=== PATIENT | female | born 1945 | race Caucasian/White ===

== ENCOUNTER 2018-11-07 07:51 | Inpatient (IN) | payer MEDICARE ==
[~2018-11-07 07:51] MED LIST: LEVOTHYROXINE 88 MCG TAB PO SCH
[2018-11-07] MEDS ORDERED: SODIUM CHLORIDE 0.9% 1,000 ML IV STA ×3 (08:36→12:14)
[2018-11-07 08:38] LABS: Glucose,Whole Blood >600 mg/dL (75-99)
--- NOTE | 2018-11-07 08:42 | ED ---
General Adult HPI - General Stated complaint: Diabetic Time Seen by Provider: 11/07/18 07:53 Source: patient, family, RN notes reviewed Mode of arrival: EMS Limitations: altered mental status - History of Present Illness Initial comments: Patient is a pleasant 73-year-old female presenting to the emergency department for not feeling well. Patient is a poor historian and offers very little history. Family does arrive and helps provide some history. Onset of symptoms was last night. Patient did vomit once. Patient had a large bowel movement in the emergency department. Blood sugar at home by EMS was 500. Family reports patient did complain of some discomfort in her chest earlier. Family reports patient does have dementia and normally is confused however this is worse than normal. Patient is very vague with answering questions. - Related Data Home Medications Medication Instructions Recorded Confirmed Carbidopa-Levodopa 25-100 mg 1 tab PO TID 03/11/15 11/07/18 [Sinemet 25-100 mg] Levothyroxine Sodium [Synthroid] 88 mcg PO SUTUTHSA 03/11/15 11/07/18 Lisinopril-Hctz 10-12.5 mg 1 tab PO DAILY 03/11/15 11/07/18 [Zestoretic 10-12.5] Lovastatin [Mevacor] 40 mg PO DAILY 03/11/15 11/07/18 Sertraline [Zoloft] 25 mg PO DAILY 03/11/15 11/07/18 amLODIPine [Norvasc] 10 mg PO DAILY 03/11/15 11/07/18 metFORMIN HCL [metFORMIN HCL ER] 1,000 mg PO BID 03/11/15 11/07/18 Insulin Aspart [NovoLOG Flexpen] 10 units SQ AC-TID 11/07/18 11/07/18 Insulin Glargine,Hum.rec.anlog 35 unit SQ HS 11/07/18 11/07/18 [Lantus Solostar] Levothyroxine Sodium [Synthroid] 44 mcg PO MOWEFR 11/07/18 11/07/18 Allergies Allergy/AdvReac Type Severity Reaction Status Date / Time Iodinated Contrast- Oral and Allergy Anaphylaxis Verified 11/07/18 09:05 IV Dye [Iodinated Contrast Media - IV Dye] Penicillins Allergy Unknown Verified 11/07/18 09:05 Review of Systems ROS Statement: Those systems with pertinent positive or pertinent negative responses have been documented in the HPI. ROS Other: All systems not noted in ROS Statement are negative. Constitutional: Denies: fever Eyes: Denies: eye pain ENT: Denies: ear pain Respiratory: Denies: dyspnea Cardiovascular: Reports: as per HPI Endocrine: Reports: fatigue Gastrointestinal: Denies: abdominal pain Genitourinary: Denies: dysuria Musculoskeletal: Denies: back pain Skin: Denies: rash Neurological: Reports: weakness Past Medical History Past Medical History: CVA/TIA, Diabetes Mellitus, Hypertension, Osteoarthritis (OA), Thyroid Disorder Additional Past Medical History / Comment(s): parkinsons, dementia, several TIA's, hospitalized recently for chest pain-testing wnl, was due to gallbladder History of Any Multi-Drug Resistant Organisms: None Reported Past Surgical History: Appendectomy, Orthopedic Surgery Additional Past Surgical History / Comment(s): knee Past Anesthesia/Blood Transfusion Reactions: Previous Problems w/ Anesthesia, Postoperative Nausea & Vomiting (PONV) Additional Past Anesthesia/Blood Transfusion Reaction / Comment(s): trouble waking up from anesthesia Past Psychological History: Depression Smoking Status: Never smoker Past Alcohol Use History: None Reported Past Drug Use History: None Reported - Past Family History Mother Family Medical History: CVA/TIA, Hypertension General Exam Limitations: altered mental status General appearance: alert, in no apparent distress Head exam: Present: atraumatic Eye exam: Present: normal appearance, PERRL ENT exam: Present: normal oropharynx Neck exam: Present: normal inspection Respiratory exam: Present: normal lung sounds bilaterally Cardiovascular Exam: Present: regular rate, normal rhythm Expanded Peripheral pulses: 1+: Radial (R), Radial (L), Posterior Tibialis (R), Posterior Tibialis (L), Dorsalis Pedis (R), Dorsalis Pedis (L) GI/Abdominal exam: Present: soft, tenderness (Mild epigastric tenderness), normal bowel sounds. Absent: distended, guarding, rebound, rigid, pulsatile mass Extremities exam: Present: normal inspection Neurological exam: Present: alert, CN II-XII intact. Absent: motor sensory deficit Expanded Neurological exam: Present: protecting the airway Patient oriented to: Present: person, place Cranial nerves: EOM's Intact: Normal Motor strength exam: RUE: 5, LUE: 5, RLE: 5, LLE: 5 Eye Response: (4) open spontaneously Motor Response: (6) obeys commands Verbal Response: (4) confused conversation Psychiatric exam: Present: flat affect Skin exam: Present: normal color Course Vital Signs 11/07/18 11/07/18 11/07/18 07:56 08:00 08:10 Temperature Pulse Rate Pulse Rate [ Cream Separator Operator ] Respiratory Rate Blood Pressure O2 Sat by Pulse 91 L 87 L 76 L Oximetry 11/07/18 11/07/18 11/07/18 08:15 08:20 08:30 Temperature 99.5 F Pulse Rate 98 93 92 Pulse Rate [ Cream Separator Operator ] Respiratory 24 32 H 29 H Rate Blood Pressure 63/43 58/25 63/43 O2 Sat by Pulse 95 95 Oximetry 11/07/18 11/07/18 11/07/18 08:40 08:50 09:00 Temperature Pulse Rate 90 92 95 Pulse Rate [ Cream Separator Operator ] Respiratory 19 28 H 25 H Rate Blood Pressure 94/76 94/76 94/76 O2 Sat by Pulse 97 Oximetry 11/07/18 11/07/18 11/07/18 09:10 09:11 09:30 Temperature Pulse Rate 91 96 Pulse Rate [ 98 Cream Separator Operator ] Respiratory 26 H Rate Blood Pressure 77/37 77/37 O2 Sat by Pulse 94 L 96 Oximetry 11/07/18 11/07/18 11/07/18 10:00 10:30 11:00 Temperature Pulse Rate 104 H 105 H 102 H Pulse Rate [ Cream Separator Operator ] Respiratory 35 H 12 Rate Blood Pressure 117/23 94/52 92/54 O2 Sat by Pulse 97 Oximetry 11/07/18 11/07/18 11:30 12:00 Temperature Pulse Rate 95 98 Pulse Rate [ Cream Separator Operator ] Respiratory 18 9 L Rate Blood Pressure 90/51 75/49 O2 Sat by Pulse Oximetry - Reevaluation(s) Reevaluation #1: 11/07/18 10:15 EKG #2 shows sinus tachycardia 103. IA 1:30. QRS 80. QT 376. QTc 492. Normal axis. Normal QRS. Borderline lateral ST depression. 11/07/18 13:25 Patient did have blood pressures as low as 69 and 78. Case was discussed in detail with Dr. Meraz, who will accept patient to the ICU. He does request central line and Levophed. Blood pressure at this time has improved to 105 therefore levophed is being held. Case was also discussed in detail Dr. Richardson, who will admit covering for hospital call. 11/07/18 13:37 Page x-ray shows central line extending to the left subclavian. 11/07/18 13:38 Patient was reevaluated. Patient will need further cardiac evaluation. Patient will be admitted to ICU for critical care. Patient will be continued on insulin drip at this time. Patient still has some epigastric tenderness on exam. Computed tomography scan will be ordered. Secondary to elevated creatinine and ALLERGY contrast will need to be held at this time. Echo will also be ordered. Heparin will be held pending CT results. EKG Findings - EKG Comments: EKG Findings:: Sinus rhythm at 97. IA 128. QRS 90. QT 370. QTc 469. Normal axis. Normal QRS. Non-specific ST-T. Procedures - Central Line Placement Right SC Consent Obtained: verbal consent, written consent Patient Placed on Monitor/Pulse Ox: Yes MD Prep: mask, gown, gloves Central Line Prep: Chlorhexidine scrub Local Anesthesia Used: Lidocaine 1% Amount of Anesthesia Used (mls): 2 Central Line Lumen Inserted: triple Central Line Position: good blood return, all ports aspirated, flushed, capped, sutured in place with 3-0 nylon Dressing Applied: Tegaderm Patient Tolerated Procedure: well, no complications Complications: none Medical Decision Making - Lab Data Result diagrams: 11/07/18 08:30 11/07/18 12:00 Lab Results 11/07/18 11/07/18 11/07/18 Range/Units 08:28 08:30 08:30 WBC 16.6 H (3.8-10.6) k/uL RBC 5.14 (3.80-5.40) m/uL Hgb 13.9 (11.4-16.0) gm/dL Hct 48.3 H (34.0-46.0) % MCV 94.1 (80.0-100.0) fL MCH 27.1 (25.0-35.0) pg MCHC 28.8 L (31.0-37.0) g/dL RDW 13.7 (11.5-15.5) % Plt Count 240 (150-450) k/uL Neutrophils % 82 % Lymphocytes % 12 % Monocytes % 5 % Eosinophils % 0 % Basophils % 0 % Neutrophils # 13.6 H (1.3-7.7) k/uL Lymphocytes # 2.1 (1.0-4.8) k/uL Monocytes # 0.7 (0-1.0) k/uL Eosinophils # 0.0 (0-0.7) k/uL Basophils # 0.1 (0-0.2) k/uL Hypochromasia Marked PT (9.0-12.0) sec INR (<1.2) APTT (22.0-30.0) sec Sodium 135 L (137-145) mmol/L Potassium 5.5 H (3.5-5.1) mmol/L Chloride 101 (98-107) mmol/L Carbon Dioxide 14 L (22-30) mmol/L Anion Gap 20 mmol/L BUN 35 H (7-17) mg/dL Creatinine 1.90 H (0.52-1.04) mg/dL Est GFR (CKD-EPI)AfAm 30 (>60 ml/min/1.73 sqM) Est GFR (CKD-EPI)NonAf 26 (>60 ml/min/1.73 sqM) Glucose 701 H* (74-99) mg/dL POC Glucose (mg/dL) >600 H (75-99) mg/dL POC Glu [employer] ID November Lactic Ac Sepsis Rflx Plasma Lactic Acid Jd (0.7-2.0) mmol/L Calcium 9.6 (8.4-10.2) mg/dL Phosphorus 5.7 H (2.5-4.5) mg/dL Magnesium 1.6 (1.6-2.3) mg/dL Total Bilirubin 1.1 (0.2-1.3) mg/dL AST 46 H (14-36) U/L ALT 32 (9-52) U/L Alkaline Phosphatase 135 H (38-126) U/L Ammonia (<30) umol/L Creatine Kinase 45 (30-135) U/L Troponin I (0.000-0.034) ng/mL Total Protein 7.3 (6.3-8.2) g/dL Albumin 3.8 (3.5-5.0) g/dL Urine Color Urine Appearance (Clear) Urine pH (5.0-8.0) Ur Specific Rewey (1.001-1.035) Urine Protein (Negative) Urine Glucose (UA) (Negative) Urine Ketones (Negative) Urine Blood (Negative) Urine Nitrite (Negative) Urine Bilirubin (Negative) Urine Urobilinogen (<2.0) mg/dL Ur Leukocyte Esterase (Negative) Urine RBC (0-5) /hpf Urine WBC (0-5) /hpf Ur Squamous Epith Cells (0-4) /hpf Hyaline Casts (0-2) /lpf Urine Mucus (None) /hpf Acetone, Qual (Negative) 11/07/18 11/07/18 11/07/18 Range/Units 08:30 08:30 08:30 WBC (3.8-10.6) k/uL RBC (3.80-5.40) m/uL Hgb (11.4-16.0) gm/dL Hct (34.0-46.0) % MCV (80.0-100.0) fL MCH (25.0-35.0) pg MCHC (31.0-37.0) g/dL RDW (11.5-15.5) % Plt Count (150-450) k/uL Neutrophils % % Lymphocytes % % Monocytes % % Eosinophils % % Basophils % % Neutrophils # (1.3-7.7) k/uL Lymphocytes # (1.0-4.8) k/uL Monocytes # (0-1.0) k/uL Eosinophils # (0-0.7) k/uL Basophils # (0-0.2) k/uL Hypochromasia PT 11.1 (9.0-12.0) sec INR 1.1 (<1.2) APTT 21.9 L (22.0-30.0) sec Sodium (137-145) mmol/L Potassium (3.5-5.1) mmol/L Chloride (98-107) mmol/L Carbon Dioxide (22-30) mmol/L Anion Gap mmol/L BUN (7-17) mg/dL Creatinine (0.52-1.04) mg/dL Est GFR (CKD-EPI)AfAm (>60 ml/min/1.73 sqM) Est GFR (CKD-EPI)NonAf (>60 ml/min/1.73 sqM) Glucose (74-99) mg/dL POC Glucose (mg/dL) (75-99) mg/dL POC Glu [employer] ID Lactic Ac Sepsis Rflx Plasma Lactic Acid Jd 9.1 H* (0.7-2.0) mmol/L Calcium (8.4-10.2) mg/dL Phosphorus (2.5-4.5) mg/dL Magnesium (1.6-2.3) mg/dL Total Bilirubin (0.2-1.3) mg/dL AST (14-36) U/L ALT (9-52) U/L Alkaline Phosphatase (38-126) U/L Ammonia 14 (<30) umol/L Creatine Kinase (30-135) U/L Troponin I 0.550 H* (0.000-0.034) ng/mL Total Protein (6.3-8.2) g/dL Albumin (3.5-5.0) g/dL Urine Color Urine Appearance (Clear) Urine pH (5.0-8.0) Ur Specific Rewey (1.001-1.035) Urine Protein (Negative) Urine Glucose (UA) (Negative) Urine Ketones (Negative) Urine Blood (Negative) Urine Nitrite (Negative) Urine Bilirubin (Negative) Urine Urobilinogen (<2.0) mg/dL Ur Leukocyte Esterase (Negative) Urine RBC (0-5) /hpf Urine WBC (0-5) /hpf Ur Squamous Epith Cells (0-4) /hpf Hyaline Casts (0-2) /lpf Urine Mucus (None) /hpf Acetone, Qual (Negative) 11/07/18 11/07/18 11/07/18 Range/Units 08:52 09:44 09:55 WBC (3.8-10.6) k/uL RBC (3.80-5.40) m/uL Hgb (11.4-16.0) gm/dL Hct (34.0-46.0) % MCV (80.0-100.0) fL MCH (25.0-35.0) pg MCHC (31.0-37.0) g/dL RDW (11.5-15.5) % Plt Count (150-450) k/uL Neutrophils % % Lymphocytes % % Monocytes % % Eosinophils % % Basophils % % Neutrophils # (1.3-7.7) k/uL Lymphocytes # (1.0-4.8) k/uL Monocytes # (0-1.0) k/uL Eosinophils # (0-0.7) k/uL Basophils # (0-0.2) k/uL Hypochromasia PT (9.0-12.0) sec INR (<1.2) APTT (22.0-30.0) sec Sodium (137-145) mmol/L Potassium (3.5-5.1) mmol/L Chloride (98-107) mmol/L Carbon Dioxide (22-30) mmol/L Anion Gap mmol/L BUN (7-17) mg/dL Creatinine (0.52-1.04) mg/dL Est GFR (CKD-EPI)AfAm (>60 ml/min/1.73 sqM) Est GFR (CKD-EPI)NonAf (>60 ml/min/1.73 sqM) Glucose (74-99) mg/dL POC Glucose (mg/dL) >600 H (75-99) mg/dL POC Glu [employer] [facility] Sepsis Rflx Y Plasma Lactic Acid Jd (0.7-2.0) mmol/L Calcium (8.4-10.2) mg/dL Phosphorus (2.5-4.5) mg/dL Magnesium (1.6-2.3) mg/dL Total Bilirubin (0.2-1.3) mg/dL AST (14-36) U/L ALT (9-52) U/L Alkaline Phosphatase (38-126) U/L Ammonia (<30) umol/L Creatine Kinase (30-135) U/L Troponin I (0.000-0.034) ng/mL Total Protein (6.3-8.2) g/dL Albumin (3.5-5.0) g/dL Urine Color Urine Appearance (Clear) Urine pH (5.0-8.0) Ur Specific Rewey (1.001-1.035) Urine Protein (Negative) Urine Glucose (UA) (Negative) Urine Ketones (Negative) Urine Blood (Negative) Urine Nitrite (Negative) Urine Bilirubin (Negative) Urine Urobilinogen (<2.0) mg/dL Ur Leukocyte Esterase (Negative) Urine RBC (0-5) /hpf Urine WBC (0-5) /hpf Ur Squamous Epith Cells (0-4) /hpf Hyaline Casts (0-2) /lpf Urine Mucus (None) /hpf Acetone, Qual Negative (Negative) 11/07/18 11/07/18 Range/Units 10:57 12:00 WBC (3.8-10.6) k/uL RBC (3.80-5.40) m/uL Hgb (11.4-16.0) gm/dL Hct (34.0-46.0) % MCV (80.0-100.0) fL MCH (25.0-35.0) pg MCHC (31.0-37.0) g/dL RDW (11.5-15.5) % Plt Count (150-450) k/uL Neutrophils % % Lymphocytes % % Monocytes % % Eosinophils % % Basophils % % Neutrophils # (1.3-7.7) k/uL Lymphocytes # (1.0-4.8) k/uL Monocytes # (0-1.0) k/uL Eosinophils # (0-0.7) k/uL Basophils # (0-0.2) k/uL Hypochromasia PT (9.0-12.0) sec INR (<1.2) APTT (22.0-30.0) sec Sodium 138 (137-145) mmol/L Potassium 5.1 (3.5-5.1) mmol/L Chloride 106 (98-107) mmol/L Carbon Dioxide 15 L (22-30) mmol/L Anion Gap 17 mmol/L BUN 34 H (7-17) mg/dL Creatinine 1.93 H (0.52-1.04) mg/dL Est GFR (CKD-EPI)AfAm 29 (>60 ml/min/1.73 sqM) Est GFR (CKD-EPI)NonAf 25 (>60 ml/min/1.73 sqM) Glucose 581 H* (74-99) mg/dL POC Glucose (mg/dL) (75-99) mg/dL POC Glu [employer] ID Lactic Ac Sepsis Rflx Plasma Lactic Acid Jd (0.7-2.0) mmol/L Calcium (8.4-10.2) mg/dL Phosphorus 5.5 H (2.5-4.5) mg/dL Magnesium (1.6-2.3) mg/dL Total Bilirubin (0.2-1.3) mg/dL AST (14-36) U/L ALT (9-52) U/L Alkaline Phosphatase (38-126) U/L Ammonia (<30) umol/L Creatine Kinase (30-135) U/L Troponin I (0.000-0.034) ng/mL Total Protein (6.3-8.2) g/dL Albumin (3.5-5.0) g/dL Urine Color Yellow Urine Appearance Cloudy H (Clear) Urine pH 5.5 (5.0-8.0) Ur Specific Rewey 1.021 (1.001-1.035) Urine Protein 1+ H (Negative) Urine Glucose (UA) 4+ H (Negative) Urine Ketones Negative (Negative) Urine Blood Negative (Negative) Urine Nitrite Negative (Negative) Urine Bilirubin Negative (Negative) Urine Urobilinogen 3.0 (<2.0) mg/dL Ur Leukocyte Esterase Negative (Negative) Urine RBC 1 (0-5) /hpf Urine WBC 4 (0-5) /hpf Ur Squamous Epith Cells 5 H (0-4) /hpf Hyaline Casts 125 H (0-2) /lpf Urine Mucus Many H (None) /hpf Acetone, Qual (Negative) - Radiology Data Radiology results: image reviewed (Chest x-ray shows no acute process. Mediastinum is prominent. 1 view abdominal x-ray shows unremarkable abdomen.) Critical Care Time Critical Care Time: Yes Total Critical Care Time: 45 Disposition Clinical Impression: Hyperglycemia, Dehydration, Chest pain Disposition: ADMITTED IP TO THIS [facility] Condition: Critical Is patient prescribed a controlled substance at d/c from ED?: No Referrals: Roberto Boyce DO [Primary Care Provider] - 1-2 days Decision Time: 13:39
[2018-11-07 09:12] LABS: Basophils # (A) 0.1 k/uL (0-0.2); Basophils % (A) 0 %; Eosinophils % (A) 0 %; HCT 48.3 % (34.0-46.0); HGB 13.9 gm/dL (11.4-16.0); Hypochromasia Marked; Lymphocytes # (A) 2.1 k/uL (1.0-4.8); Lymphocytes % (A) 12 %; MCH 27.1 pg (25.0-35.0); MCHC 28.8 g/dL (31.0-37.0); MCV 94.1 fL (80.0-100.0); Mean Platelet Volume 8.9; Monocytes # (A) 0.7 k/uL (0-1.0); Monocytes % (A) 5 %; Neutrophils # (A) 13.6 k/uL (1.3-7.7); Neutrophils % (A) 82 %; Platelet Count 240 k/uL (150-450); RBC 5.14 m/uL (3.80-5.40); RDW 13.7 % (11.5-15.5); WBC 16.6 k/uL (3.8-10.6)
[2018-11-07 09:22] LABS: Albumin 3.8 g/dL (3.5-5.0); Calcium 9.6 mg/dL (8.4-10.2); Magnesium 1.6 mg/dL (1.6-2.3); Phosphorus 5.7 mg/dL (2.5-4.5); Total Bilirubin 1.1 mg/dL (0.2-1.3); Total Protein 7.3 g/dL (6.3-8.2)
--- NOTE | 2018-11-07 09:32 | XR ---
EXAMINATION TYPE: XR abdomen 1V DATE OF EXAM: 11/07/2018 COMPARISON: None INDICATION: Pain TECHNIQUE: Single view abdomen supine view FINDINGS: Very little bowel gas is present. Air is within the stomach. Multiple surgical clips are within the l eft upper quadrant. There is elevation of the right diaphragm. Psoas margins are normal. No organomegaly is present. IMPRESSION: 1. Unremarkable Abdomen
--- NOTE | 2018-11-07 09:34 | XR ---
EXAMINATION TYPE: XR chest 2V DATE OF EXAM: 11/07/2018 COMPARISON: 03/11/2015 INDICATION: Weakness acute mental status changes hyperglycemia TECHNIQUE: Frontal and lateral views of the chest are obtained. FINDINGS: The heart size is mildly prominent. Mediastinum appears prominent. There is some rotation may accentu ate the mediastinal silhouette.. The pulmonary vasculature is normal. The lungs are clear. IMPRESSION: 1. No acute pulmonary process. 2. Mediastinum appears somewhat prominent. Some of this may be attributed to rotation. Underlying mas s could be considered. Consider follow-up CT chest.
[2018-11-07 09:37] LABS: INR 1.1 (<1.2); Partial Thromboplastin Time 21.9 sec (22.0-30.0); Prothrombin Time 11.1 sec (9.0-12.0)
[2018-11-07 09:46] LABS: Glucose,Whole Blood >600 mg/dL (75-99)
[2018-11-07 09:50] LABS: Potassium 5.5 mmol/L (3.5-5.1)
[2018-11-07] MEDS ORDERED: SODIUM CHLORIDE 0.9% 1,000 ML IV ONE (09:52)
[2018-11-07] MEDS ORDERED: INSULIN REGULAR BOLUS (FROM DRIP BAG) IV ONE (09:52)
[2018-11-07 09:55] LABS: Lactic Acid, Venous 9.1 mmol/L (0.7-2.0)
[2018-11-07] MEDS: INSULIN REGULAR 100 UNIT in SODIUM CHLORIDE 0.9% 100 ML IV SCH ×2 (11:19→21:30)
[2018-11-07 11:24] LABS: Appearance,Urine Cloudy (Clear); Bilirubin,Urine Negative (Negative); Blood,Urine Negative (Negative); Color,Urine Yellow; Glucose,Urine (UA) 4+ (Negative); Hyaline Casts,Urine 125 /lpf (0-2); Ketones,Urine Negative (Negative); Leukocyte Esterase,Urine Negative (Negative); Mucus,Urine Many /hpf; Nitrite,Urine Negative (Negative); PH, Urine 5.5 (5.0-8.0); Protein,Urine 1+ (Negative); RBC,Urine 1 /hpf (0-5); Specific Gravity,Urine 1.021 (1.001-1.035); Squamous Epithelial Cell,Urine 5 /hpf (0-4); WBC,Urine 4 /hpf (0-5)
[2018-11-07] MEDS: SODIUM CHLORIDE 0.9% 1,000 ML IV SCH ×3 (12:10→20:10)
[2018-11-07 12:45] LABS: Phosphorus 5.5 mg/dL (2.5-4.5); Potassium 5.1 mmol/L (3.5-5.1)
--- NOTE | 2018-11-07 13:36 | XR ---
EXAMINATION TYPE: XR chest 1V portable DATE OF EXAM: 11/07/2018 COMPARISON: 11/07/2018 INDICATION: Line placement TECHNIQUE: Single frontal view of the chest is obtained. FINDINGS: The heart size is normal. The pulmonary vasculature is normal. The lungs are clear. No pneumothorax is evident There is a right subclavian catheter present across the midline with the tip in the left subclavian r egion. No pneumothorax is evident. IMPRESSION: 1. Central venous catheter tip appears to be in the left subclavian or brachiocephalic region. 2. No pneumothorax.
[2018-11-07] MEDS ORDERED: NALOXONE 0.4 MG/ML 1 ML VIAL IV PRN (13:42)
[2018-11-07 13:44] LABS: Glucose,Whole Blood 443 mg/dL (75-99)
[2018-11-07] MEDS ORDERED: NITROGLYCERIN SL TABS 0.4 MG TAB SUBLINGUAL PRN (13:44)
[2018-11-07] MEDS ORDERED: ASPIRIN 81 MG PO STA (13:44)
[2018-11-07 15:09] LABS: Glucose,Whole Blood 439 mg/dL (75-99)
--- NOTE | 2018-11-07 15:22 | CT ---
EXAMINATION TYPE: CT ChestAbdPelvis wo con DATE OF EXAM: 11/07/2018 INDICATION: Hyperglycemia, vomiting, chest pain. COMPARISON: None CT DLP: 694.5 mGycm CONTRAST: None TECHNIQUE: Axial images at 5 mm thick sections. Reconstructed images in the coronal plane. Delayed images through the kidneys. FINDINGS: CT CHEST: Beam hardening artifact from a right shoulder prosthesis causes some limitation. Right subc lavian catheter is present within the brachiocephalic vein. The tip appears to be within the distal m ost brachiocephalic vein or superior vena cava region. Subcutaneous emphysema is evident the anterior chest. Portion of the thyroid visualized is normal. This is limited in visualization. Right lobe thyroid is somewhat more prominent than the left. No suspicious lung nodules or focal infiltrates are present. No enlarged mediastinal or hilar adenopathy is evident. The ascending aorta diameter at the level of the main pulmonary artery is 2.6 cm. The main pulmonary artery diameter at the bifurcation is 3.4 cm. Coronary artery calcifications present. Calcification is within the descending thoracic aorta at the aortic arch ascending thoracic aorta. CT ABDOMEN: Liver: Normal Spleen: Normal Pancreas: Normal Adrenal glands: The adrenal glands are normal. Gallbladder: Surgically absent Kidneys: No masses are evident. No hydronephrosis is present. No cysts are present. No renal stone s are evident. Aorta: Vascular calcification is within the aorta. Inferior vena cava: Normal. CT PELVIS: Loops of bowel within the abdomen and pelvis are normal. There are loops of bowel which are incom pletely distended or lack oral contrast limiting their evaluation. Appendix: Not visualized. No suspicious inflammatory changes or dilated tubular structures are eviden t. Urinary bladder: Decompressed with a Kc catheter. Genitourinary structures: Uterus appears normal. Adnexal regions are clear. No free fluid is within t he pelvis. Osseous structures: No suspicious lytic or sclerotic lesions. Facet hypertrophy is present. IMPRESSIONS: 1. No suspicious acute changes.
[2018-11-07] MEDS ORDERED: HEPARIN SODIUM,PORCINE 5,000 UNIT/ML 1 ML VIAL IV PRN (15:37)
[2018-11-07] MEDS ORDERED: HEPARIN SODIUM,PORCINE 5,000 UNIT/ML 1 ML VIAL IV ONE (15:37)
[2018-11-07 15:44] LABS: Glucose,Whole Blood 370 mg/dL (75-99)
[2018-11-07] MEDS ORDERED: HEPARIN SOD,PORK IN 0.45% NACL 25,000 UNIT in 0.45% NACL 1 250ML.BAG IV SCH (15:45)
--- NOTE | 2018-11-07 16:14 | P.CNPUL ---
History of Present Illness Consult date: 11/07/18 Requesting physician: Bharat Richardson Reason for consult: other (altered mental status) Chief complaint: altered mental status History of present illness: this is a 73-year-old female with history of multiple medical problems including dementia,diabetes, hypothyroidism, hypertension,degenerative joint disease, previous CVA, patient was brought into the ER withchief complaint not feeling well, patient is a poor historian, and according to family patient had worsening mental status, and feeling generally weak and tired. She did have some vague discomfort in the chest earlier today.her symptoms have been progressing since last night. She had one episode of vomiting. But denies any abdominal pain, no melena, no hematemesis, denies any dysuria frequency or urgency. In the ER, the patient was noted to be hypotensive, ,metabolically acidotic with an anion gap of 17, she was noted to have acute kidney injury with BUN of 34 creatinine of 1.93, and her blood sugar was 581, elevated troponin of 0.630,and she was negative for ketones. Patient received 2 on a half liters of fluids in the form of 0.9 normal saline, remained relatively hypotensive, a central line was placed by the ER physician,and a central line was noted to cross from the right to the left subclavian or brachiocephalic region. However it was functional, and it was kept in place.considering the patient's hypotension, hyperglycemia, patient was transferred to the ICU, kept on 0.9 normal saline at 200 mL/h, insulin is at 7 units per hour, CT of the abdomen and pelvis was negative for any acute process. Chest x-ray was also unremarkable. Her lactic acid was elevated, but clearly the patient was profoundly dehydrated. No clear-cut evidence of infection or sepsis upon presentation. Review of Systems patient is a poor historian, not much review of systems couldn't be obtained. She does have also underlying dementia. Past Medical History Past Medical History: CVA/TIA, Dementia, Diabetes Mellitus, Hyperlipidemia, Hypertension, Musculoskeletal Disorder, Neurologic Disorder, Osteoarthritis (OA), Thyroid Disorder Additional Past Medical History / Comment(s): IDDM type II, parkinson's disease, several TIAs, arthritis bilateral hands/legs, hypothyroid, recently has been having vision difficulties. History of Any Multi-Drug Resistant Organisms: None Reported Past Surgical History: Adenoidectomy, Appendectomy, Cholecystectomy, Orthopedic Surgery, Tonsillectomy, Tubal Ligation Additional Past Surgical History / Comment(s): Total L knee arthroplasty, R shoulder hemiarthroplasty, bilateral ganglion cystectomies, pancreatic cyst removed, colonoscopy, surgery for varicosities. Past Anesthesia/Blood Transfusion Reactions: Previous Problems w/ Anesthesia, Postoperative Nausea & Vomiting (PONV) Additional Past Anesthesia/Blood Transfusion Reaction / Comment(s): trouble waking up from anesthesia Smoking Status: Never smoker - Past Family History Father Family Medical History: No Reported History Additional Family Medical History / Comment(s): Father was healthy and lived to be 97yrs old. Mother Family Medical History: CVA/TIA, Hypertension Medications and Allergies Home Medications Medication Instructions Recorded Confirmed Type Carbidopa-Levodopa 25-100 mg 1 tab PO TID 03/11/15 11/07/18 History [Sinemet 25-100 mg] Levothyroxine Sodium [Synthroid] 88 mcg PO SUTUTHSA 03/11/15 11/07/18 History Lisinopril-Hctz 10-12.5 mg 1 tab PO DAILY 03/11/15 11/07/18 History [Zestoretic 10-12.5] Lovastatin [Mevacor] 40 mg PO DAILY 03/11/15 11/07/18 History Sertraline [Zoloft] 25 mg PO DAILY 03/11/15 11/07/18 History amLODIPine [Norvasc] 10 mg PO DAILY 03/11/15 11/07/18 History metFORMIN HCL [metFORMIN HCL ER] 1,000 mg PO BID 03/11/15 11/07/18 History Insulin Aspart [NovoLOG Flexpen] 10 units SQ AC-TID 11/07/18 11/07/18 History Insulin Glargine,Hum.rec.anlog 35 unit SQ HS 11/07/18 11/07/18 History [Lantus Solostar] Levothyroxine Sodium [Synthroid] 44 mcg PO MOWEFR 11/07/18 11/07/18 History Allergies Allergy/AdvReac Type Severity Reaction Status Date / Time Iodinated Contrast- Oral and Allergy Anaphylaxis Verified 11/07/18 09:05 IV Dye [Iodinated Contrast Media - IV Dye] Penicillins Allergy Unknown Verified 11/07/18 09:05 Physical Exam Vitals: Vital Signs Temp Pulse Pulse Resp BP Pulse Ox 11/07/18 15:30 95.8 F L 108 H 18 93/56 96 11/07/18 14:30 111 H 15 91/66 96 11/07/18 14:00 105 H 11 L 106/64 11/07/18 13:30 107 H 106/59 99 11/07/18 13:00 108 H 23 107/72 11/07/18 12:30 105 H 89/61 99 11/07/18 12:00 98 9 L 75/49 11/07/18 11:30 95 18 90/51 11/07/18 11:00 102 H 12 92/54 11/07/18 10:30 105 H 35 H 94/52 11/07/18 10:00 104 H 117/23 97 11/07/18 09:30 96 77/37 96 11/07/18 09:11 98 11/07/18 09:10 91 26 H 77/37 94 L 11/07/18 09:00 95 25 H 94/76 97 11/07/18 08:50 92 28 H 94/76 11/07/18 08:40 90 19 94/76 11/07/18 08:30 92 29 H 63/43 95 11/07/18 08:20 93 32 H 58/25 11/07/18 08:15 99.5 F 98 24 63/43 95 11/07/18 08:10 76 L 11/07/18 08:00 87 L 11/07/18 07:56 91 L Intake and Output 11/07/18 11/07/18 11/07/18 06:59 14:59 22:59 Other: Weight 77.111 kg Physical Exam: Revealed a 73-year-old female in no distress. Head: Atraumatic, normocephalic. HEENT:[Neck is supple.] [No neck masses.] [No thyromegaly.] [No JVD.]dry mucous membranes, PERRLA, EOMI, no icterus. Chest: [diminished breath sounds at the bases no crackles nor rhonchi no wheezes, no chest wall tenderness.]right subclavian central line is noted. Cardiac Exam: [Normal S1 and S2, no S3 gallop, no murmur.] Abdomen: [Soft, nontender, no megaly, no rebound, no guarding, normal bowel sounds.]positive bowel sounds. Extremities: [No clubbing, no edema, no cyanosis.]good pulses bilaterally. Neurological Exam: patient is awake, confused, disoriented, otherwise no gross focal neurologic deficit. Psychiatric: Blunted mood and affect, poor mental status. Skin: No rashes. Lymphatics: No lymphadenopathy. Results - Laboratory Findings CBC and BMP: 11/07/18 08:30 11/07/18 12:00 PT/INR, D-dimer PT 11.1 sec (9.0-12.0) 11/07/18 08:30 INR 1.1 (<1.2) 11/07/18 08:30 Abnormal lab findings: Abnormal Labs 11/07/18 11/07/18 11/07/18 08:28 08:30 08:30 WBC 16.6 H Hct 48.3 H MCHC 28.8 L Neutrophils # 13.6 H APTT Sodium 135 L Potassium 5.5 H Carbon Dioxide 14 L BUN 35 H Creatinine 1.90 H Glucose 701 H* POC Glucose (mg/dL) >600 H Plasma Lactic Acid Jd Phosphorus 5.7 H AST 46 H Alkaline Phosphatase 135 H Troponin I Urine Appearance Urine Protein Urine Glucose (UA) Ur Squamous Epith Cells Hyaline Casts Urine Mucus 11/07/18 11/07/18 11/07/18 08:30 08:30 08:30 WBC Hct MCHC Neutrophils # APTT 21.9 L Sodium Potassium Carbon Dioxide BUN Creatinine Glucose POC Glucose (mg/dL) Plasma Lactic Acid Jd 9.1 H* Phosphorus AST Alkaline Phosphatase Troponin I 0.550 H* Urine Appearance Urine Protein Urine Glucose (UA) Ur Squamous Epith Cells Hyaline Casts Urine Mucus 11/07/18 11/07/18 11/07/18 09:44 10:57 12:00 WBC Hct MCHC Neutrophils # APTT Sodium Potassium Carbon Dioxide 15 L BUN 34 H Creatinine 1.93 H Glucose 581 H* POC Glucose (mg/dL) >600 H Plasma Lactic Acid Jd Phosphorus 5.5 H AST Alkaline Phosphatase Troponin I Urine Appearance Cloudy H Urine Protein 1+ H Urine Glucose (UA) 4+ H Ur Squamous Epith Cells 5 H Hyaline Casts 125 H Urine Mucus Many H 11/07/18 11/07/18 11/07/18 13:41 14:32 14:32 WBC Hct MCHC Neutrophils # APTT Sodium Potassium Carbon Dioxide BUN Creatinine Glucose POC Glucose (mg/dL) 443 H Plasma Lactic Acid Jd 4.6 H* Phosphorus AST Alkaline Phosphatase Troponin I 0.630 H* Urine Appearance Urine Protein Urine Glucose (UA) Ur Squamous Epith Cells Hyaline Casts Urine Mucus 11/07/18 11/07/18 15:08 15:33 WBC Hct MCHC Neutrophils # APTT Sodium Potassium Carbon Dioxide BUN Creatinine Glucose POC Glucose (mg/dL) 439 H 370 H Plasma Lactic Acid Jd Phosphorus AST Alkaline Phosphatase Troponin I Urine Appearance Urine Protein Urine Glucose (UA) Ur Squamous Epith Cells Hyaline Casts Urine Mucus - Diagnostic Findings Chest x-ray: image reviewed CT scan - chest: image reviewed (CT chest abdomen and pelvis reviewed, no suspicious abnormality in no acute change.) Additional studies: all radiographic studies noted, no acute abnormality was noted. Assessment and Plan Assessment: impression: 1 acute hyperglycemic, hyperosmolar state with dehydration and metabolic encephalopathy. 2 profound dehydration secondary to hyperglycemia, and strongly suspect pre- renal azotemia, possible acute kidney injury secondary to hypotension. 3 acute hypovolemia with hypotension. 4 elevated troponin, possible non-ST elevation myocardial infarction, however that is being addressed by cardiology was consulted. 5multiple comorbidities including dementia, hypertension, degenerative joint disease,hypothyroidism, hypercholesterolemia and depression. Recommendation:fully agree with the present treatment plan, patient is now on IV fluid in the form of 0.9 normal saline at 200 mL/h, the protocol for hyperglycemia is being followed presently on insulin drip, strongly doubt sepsis, however considering the patient profound metabolic acidosis and hypotension, will empirically start the patient on Levaquin until cultures of blood urine are available. Continue GI prophylaxis, and continue heparin. We'll continue to follow. Time with Patient: Greater than 30
[2018-11-07 16:54] LABS: Potassium 4.5 mmol/L (3.5-5.1)
[2018-11-07] MEDS ORDERED: LEVOFLOXACIN 500MG-D5W PMX 500 MG in DEXTROSE/WATER 1 100ML.BAG IVPB SCH (17:00)
[2018-11-07 17:10] LABS: Glucose,Whole Blood 257 mg/dL (75-99)
[2018-11-07] MEDS: D5-0.45% NACL WITH KCL 20MEQ/L 1,000 ML IV SCH (17:36)
[2018-11-07 18:29] LABS: Glucose,Whole Blood 267 mg/dL (75-99)
[2018-11-07 19:30] LABS: Glucose,Whole Blood 277 mg/dL (75-99)
[2018-11-07 20:15] LABS: Glucose,Whole Blood 228 mg/dL (75-99)
[2018-11-07] MEDS: CARBIDOPA-LEVODOPA 25-100 MG 1 EACH TAB PO SCH (20:47)
[2018-11-07 21:18] LABS: Glucose,Whole Blood 229 mg/dL (75-99)
[2018-11-07 22:10] LABS: Glucose,Whole Blood 201 mg/dL (75-99)
[2018-11-07 23:14] LABS: Glucose,Whole Blood 212 mg/dL (75-99)
[2018-11-08 00:08] LABS: Glucose,Whole Blood 196 mg/dL (75-99)
[2018-11-08] MEDS: D5-0.45% NACL WITH KCL 20MEQ/L 1,000 ML IV SCH ×2 (00:32→07:20)
--- NOTE | 2018-11-08 00:37 | HP ---
HISTORY AND PHYSICAL DATE OF ADMISSION: November 07, 2018 DATE OF SERVICE: November 07, 2018 PRESENTING COMPLAINT: Tired, lethargic. HISTORY OF PRESENTING COMPLAINT: This is a 73-year-old patient who follows with Dr. Whitt presented to the ER not feeling well. The patient has got dementia. Per the ER, family brought the patient in and since last night, the patient did vomit once. Did have a large bowel movement in the ER. Blood sugar taken at home was about 500. She was more lethargic in the ER, the patient had a blood glucose was 701. Lactic acid was 9.1 and troponin was 0.5. Potassium was 5.5. The patient's serum acetone was negative. The patient was put on insulin drip and protocol with IV fluids, initially given normal saline and then D5 admitted to the ICU. Like stated, the patient is rather confused. The patient's chronic stable medical conditions include dementia, hyperlipidemia, hypertension, osteoarthritis, hypothyroid, Parkinson's disease, several TIAs, arthritis, hypothyroid. REVIEW OF SYSTEMS: See above. Rest cannot be obtained as the patient is rather confused, can only answer simple questions. PAST MEDICAL HISTORY: Stroke, dementia, diabetes, hyperlipidemia, hypertension, musculoskeletal disorder, osteoarthritis, hypothyroid, diabetes type 2, Parkinson disease, arthritis in both the hands, hypothyroid. All this is obtained from the hospital documentation electronic system. PAST SURGICAL HISTORY: Adenoidectomy, appendectomy, cholecystectomy, orthopedic surgery, tonsillectomy, tubal ligation, total left knee arthroplasty, right shoulder hemiarthroplasty, cystectomy, pancreatic cyst removed, surgery for varicosities. PSYCH HISTORY: Depression. SOCIAL HISTORY: Patient lives with her daughter Wanda who is the caregiver. Does use a walker. No history of smoking or alcohol. FAMILY HISTORY: Of stroke and hypertension. HOME MEDICATIONS: 1. Metformin ER 1000 mg b.i.d. 2. Norvasc 10 mg p.o. daily. 3. Followup 25 p.o. daily. 4. Pravachol 40 mg p.o. daily. 5. Zestoretic 05/27.5 one tab p.o. daily. 6. Synthroid 88 mcg on Wednesday, Wednesday, , Wednesday and 44 mcg Wednesday, Wednesday and Wednesday. 7. Insulin NovoLog 10 units a.c. t.i.d. 8. Lantus 35 units subcu q.h.s. 9. Sinemet 25/100 tab t.i.d. ALLERGIES: IV CONTRAST DYE AND PENICILLIN. PHYSICAL EXAMINATION: VITAL SIGNS: Vital signs on presentation temperature 99.5, pulse 98, respiration 24, blood pressure 53/43, pulse ox 95% on 2 L. GENERAL APPEARANCE: Well built, BMI 31. Lying in bed tired-appearing. EYES: Pupils equal. Conjunctivae normal. HEENT: External appearance of nose and ears normal. Oral cavity dry. J JVD: JVD unable to assess. Mass not palpable. Respiratory effort normal. Lungs fair entry CARDIOVASCULAR: 1st and 2nd sounds normal. No edema. ABDOMEN: Soft, nontender. Liver and spleen not palpable. LYMPHATIC: Lymph nodes palpable in neck or axillae. PSYCHIATRY: Patient can answer some simple questions. Does not know why she is here or what places this is. NEUROLOGICAL: Pupils equal. No facial asymmetry. Moving her limbs. INVESTIGATIONS: White count 16.6, hemoglobin 13.9, potassium 5.5, bicarb 14, BUN 35, creatinine 1.90, blood glucose 701, lactic acid 9.1, phosphorus 5.7. Troponin I 0.550. Serum acetone negative. EKG tracing personally reviewed by me showed normal sinus rhythm with nonspecific ST-segment changes and slight dipping in the lateral leads. CT scan of the chest, abdomen and pelvis in acute x-ray film, personally reviewed by me shows some cardiomegaly, elevated right diaphragm with a supine film. ASSESSMENT: 1. Acute nonketotic hyperosmolar hyperglycemia. 2. Diabetes mellitus type 2, chronically on insulin. 3. Acute metabolic encephalopathy from uncontrolled sugars and fluid abnormalities. 4. Severe cognitive impairment from underlying dementia. 5. Hyperlipidemia. 6. Essential hypertension. 7. Primary osteoarthritis. 8. Hypothyroid. 9. Chronic Parkinson disease. 10.Hyperkalemia secondary to renal failure renal failure renal failure. 11.Suspect acute renal failure due to volume loss, dehydration. 12.Troponin leak troponin leak likely from hemodynamic mismatch. Doubt acute coronary syndrome. PLAN: Patient admitted to the ICU put on DKA protocol. We will get a 2-D echocardiogram and get a cardiology opinion. Currently no family members present. The patient was put on IV heparin in the ER. We will await further cardiology input. Copy to Dr. Roberto Castle. MMODL / IJN: [id number] /
[2018-11-08 01:11] LABS: Glucose,Whole Blood 155 mg/dL (75-99)
[2018-11-08 02:19] LABS: Hemoglobin A1C 8.9 % (4.0-6.0)
[2018-11-08 02:22] LABS: Glucose,Whole Blood 163 mg/dL (75-99)
[2018-11-08 03:13] LABS: Glucose,Whole Blood 140 mg/dL (75-99)
[2018-11-08 04:14] LABS: Glucose,Whole Blood 150 mg/dL (75-99)
[2018-11-08 05:15] LABS: Glucose,Whole Blood 127 mg/dL (75-99)
[2018-11-08 05:51] LABS: HCT 43.7 % (34.0-46.0); HGB 12.9 gm/dL (11.4-16.0); Hypochromasia Marked; MCH 26.9 pg (25.0-35.0); MCHC 29.5 g/dL (31.0-37.0); MCV 91.1 fL (80.0-100.0); Mean Platelet Volume 9.8; Platelet Count 120 k/uL (150-450); RBC 4.79 m/uL (3.80-5.40); RDW 13.9 % (11.5-15.5); WBC 22.1 k/uL (3.8-10.6)
[2018-11-08 06:11] LABS: INR 1.4 (<1.2); Prothrombin Time 14.4 sec (9.0-12.0)
[2018-11-08 06:28] LABS: Calcium 8.7 mg/dL (8.4-10.2); Magnesium 1.2 mg/dL (1.6-2.3); Phosphorus 3.4 mg/dL (2.5-4.5); Potassium 4.8 mmol/L (3.5-5.1)
[2018-11-08] MEDS ORDERED: LEVOTHYROXINE 88 MCG TAB PO SCH (06:30)
[2018-11-08 06:41] LABS: Glucose,Whole Blood 135 mg/dL (75-99)
[2018-11-08 06:53] LABS: Band Neutrophils % 6 %; Lymphocytes # (M) 3.76 k/uL (1.0-4.8); Monocytes # (M) 1.33 k/uL (0-1.0); Neutrophils % (M) 71 %; Nucleated Red Blood Cells 0 /100 WBC (0-0); Total Cells Counted 100
[2018-11-08 06:54] LABS: Anisocytosis (M) Present
[2018-11-08 06:56] LABS: Poikilocytosis (M) Present
[2018-11-08 06:58] LABS: Polychromasia Present
[2018-11-08 07:00] LABS: Toxic Granulation Present
[2018-11-08 08:17] LABS: Glucose,Whole Blood 151 mg/dL (75-99)
[2018-11-08] MEDS ORDERED: SUCCINYLCHOLINE CHLORIDE VIAL 200 MG/10 ML VIAL IV ONE (08:21)
[2018-11-08] MEDS ORDERED: MIDAZOLAM 1 MG/ML 5 ML VIAL ONE (08:21)
[2018-11-08] MEDS ORDERED: ASPIRIN 81 MG PO SCH (09:00)
[2018-11-08] MEDS ORDERED: SERTRALINE 25 MG TAB PO SCH (09:00)
[2018-11-08] MEDS ORDERED: ASPIRIN 325 MG TAB PO SCH (09:00)
[2018-11-08] MEDS ORDERED: ATORVASTATIN 40 MG TAB PO SCH (09:00)
[2018-11-08] MEDS ORDERED: PANTOPRAZOLE 40 MG/10 ML VIAL IV SCH (09:00)
[2018-11-08] MEDS ORDERED: ATORVASTATIN 10 MG TAB PO SCH (09:00)
[2018-11-08] MEDS ORDERED: METOPROLOL TARTRATE 12.5 MG TAB PO SCH (09:00)
--- NOTE | 2018-11-08 09:02 | ECHOF ---
Referral Reason:chest pain MEASUREMENTS -------- HEIGHT: 157.5 cm WEIGHT: 77.1 kg BP: RVIDd: 4.8 cm (< 3.3) IVSd: 1.3 cm (0.6 - 1.1) LVIDd: 2.7 cm (3.9 - 5.3) LVPWd: 1.5 cm (0.6 - 1.1) IVSs: 1.6 cm LVIDs: 1.7 cm LVPWs: 1.3 cm LAESV Index (A-L): 24.42 ml/m Ao Diam: 2.8 cm (2.0 - 3.7) AV Cusp: 1.3 cm (1.5 - 2.6) LA Diam: 3.6 cm (2.7 - 3.8) MV E Romulo: 0.53 m/s MV DecT: 195 ms MV A Romulo: 0.85 m/s MV E/A Ratio: 0.63 RAP: 15.00 mmHg RVSP: 62.51 mmHg FINDINGS -------- Sinus rhythm. This was a techncally difficult study with suboptimal views, , Lumason utilized for enhancement of im ages. There is mild concentric left ventricular hypertrophy. Overall left ventricular systolic function i s normal with, an EF between 60 - 65 %. The right ventricle is severely enlarged. The right ventricular systolic function is severely impai red. The right ventricular septal wall is flattened in diastole and systole which is consistent wi th right ventricular volume and pressure overload. The left atrial size is normal. The right atrial size is normal. 5.0mg OF Lumason UTLIZED: 2 OR MORE WALL SEGMENTS NOT VISUALIZED. There is mild aortic valve sclerosis. There is no evidence of aortic regurgitation. Mild mitral annular calcification present. Mild mitral regurgitation is present. Moderate tricuspid regurgitation present. There is moderate pulmonary hypertension. The right ignacio tricular systolic pressure, as measured by Doppler, is 62.51mmHg. The pulmonic valve was not well visualized. The aortic root size is normal. IVC Not well visulized. There is no pericardial effusion. CONCLUSIONS -------- 1. This was a techncally difficult study with suboptimal views, , Lumason utilized for enhancement of images. 2. There is mild concentric left ventricular hypertrophy. 3. Overall left ventricular systolic function is normal with, an EF between 60 - 65 %. 4. The right ventricle is severely enlarged. 5. The right ventricular septal wall is flattened in diastole and systole which is consistent with r ight ventricular volume and pressure overload. 6. The left atrial size is normal. 7. The right atrial size is normal. 8. 5.0mg OF Lumason UTLIZED: 2 OR MORE WALL SEGMENTS NOT VISUALIZED. 9. There is mild aortic valve sclerosis. 10. Mild mitral annular calcification present. 11. Mild mitral regurgitation is present. 12. Moderate tricuspid regurgitation present. 13. The right ventricular systolic pressure, as measured by Doppler, is 62.51mmHg. 14. The pulmonic valve was not well visualized. 15. The aortic root size is normal. 16. IVC Not well visulized. 17. There is no pericardial effusion. SHELL MAKER LOCKSTITCH: Lorena Dinero RDCS
[2018-11-08 09:30] LABS: Glucose,Whole Blood 189 mg/dL (75-99)
[2018-11-08] MEDS: CARBIDOPA-LEVODOPA 25-100 MG 1 EACH TAB PO SCH (09:37)
[2018-11-08] MEDS ORDERED: FUROSEMIDE 10 MG/ML 4 ML VIAL IV STA (10:24)
[2018-11-08] MEDS ORDERED: SODIUM CHLORIDE 0.9% 1,000 ML IV SCH (10:30)
[2018-11-08 10:39] LABS: Calcium 8.5 mg/dL (8.4-10.2); Phosphorus 3.9 mg/dL (2.5-4.5); Potassium 5.3 mmol/L (3.5-5.1)
[2018-11-08] MEDS ORDERED: SODIUM BICARBONATE TAB 650 MG TAB PO SCH (10:45)
[2018-11-08] MEDS ORDERED: ONDANSETRON 4 MG/2 ML VIAL IVP PRN (10:50)
[2018-11-08] MEDS ORDERED: Magnesium Replacement Protocol 1 EACH MISC MISCELLANE PRN (10:51)
[2018-11-08 10:59] VITALS: BMI 30.1
[2018-11-08 11:29] LABS: Glucose,Whole Blood 225 mg/dL (75-99)
[2018-11-08] MEDS ORDERED: DEXTROSE 5% IN WATER 1,000 ML with SODIUM BICARB (1 MEQ/ML) 150 ML IV SCH (11:45)
[2018-11-08] MEDS ORDERED: MAGNESIUM SULFATE-D5W PMX 1 GM in DEXTROSE/WATER 1 100ML.BAG IVPB SCH (12:00)
--- NOTE | 2018-11-08 12:03 | P.NPCON ---
History of Present Illness - Reason for Consult acute renal failure - History of Present Illness Reason for consultation: Acute kidney injury History of present illness: Patient is a 73-year-old female seen in consultation for acute kidney injury. Patient's creatinine in February 2015 was 0.76. This admission was 1.92 and is up to 2.42 today. Patient presented to the hospital with generalized weakness and hyperglycemia. Her blood sugar was over 600 on admission and she is currently maintained on insulin drip. She has received 2-1/2 L of normal saline bolus. In terms of maintenance fluids she is maintained on normal saline at 125 mL an hour. Her blood pressure was also in the systolic 80s on admission and is improved. She is not on vasopressors. She is acidotic with a bicarbonate level of 16. She was taking KISHAN inhibitor and hydrochlorothiazide which are currently held. She has long-standing history of diabetes mellitus. Urine output has been 5-10 mL an hour. No use of NSAIDs. She did have vomiting prior to admission. No family history of renal disease. Daughter present at bedside. Vital signs are stable. General: The patient appeared well nourished and normally developed. HEENT: Head exam is unremarkable. Neck is without jugular venous distension. LUNGS: Breath sounds decreased. HEART: Rate and Rhythm are regular. First and second heart sounds normal. No murmurs, rubs or gallops. ABDOMEN: Abdominal exam reveals normal bowel sounds. Non-tender and non- distended. No evidence of peritonitis. EXTREMITITES: No clubbing, cyanosis, or edema. Past Medical History Past Medical History: CVA/TIA, Dementia, Diabetes Mellitus, Hyperlipidemia, Hypertension, Musculoskeletal Disorder, Neurologic Disorder, Osteoarthritis (OA), Thyroid Disorder Additional Past Medical History / Comment(s): IDDM type II, parkinson's disease, several TIAs, arthritis bilateral hands/legs, hypothyroid, recently has been having vision difficulties. History of Any Multi-Drug Resistant Organisms: None Reported Past Surgical History: Adenoidectomy, Appendectomy, Cholecystectomy, Orthopedic Surgery, Tonsillectomy, Tubal Ligation Additional Past Surgical History / Comment(s): Total L knee arthroplasty, R shoulder hemiarthroplasty, bilateral ganglion cystectomies, pancreatic cyst removed, colonoscopy, surgery for varicosities. Past Anesthesia/Blood Transfusion Reactions: Previous Problems w/ Anesthesia, Postoperative Nausea & Vomiting (PONV) Additional Past Anesthesia/Blood Transfusion Reaction / Comment(s): trouble waking up from anesthesia Smoking Status: Never smoker - Past Family History Father Family Medical History: No Reported History Additional Family Medical History / Comment(s): Father was healthy and lived to be 97yrs old. Mother Family Medical History: CVA/TIA, Hypertension Medications and Allergies Home Medications Medication Instructions Recorded Confirmed Type Carbidopa-Levodopa 25-100 mg 1 tab PO TID 03/11/15 11/07/18 History [Sinemet 25-100 mg] Levothyroxine Sodium [Synthroid] 88 mcg PO SUTUTHSA 03/11/15 11/07/18 History Lisinopril-Hctz 10-12.5 mg 1 tab PO DAILY 03/11/15 11/07/18 History [Zestoretic 10-12.5] Lovastatin [Mevacor] 40 mg PO DAILY 03/11/15 11/07/18 History Sertraline [Zoloft] 25 mg PO DAILY 03/11/15 11/07/18 History amLODIPine [Norvasc] 10 mg PO DAILY 03/11/15 11/07/18 History metFORMIN HCL [metFORMIN HCL ER] 1,000 mg PO BID 03/11/15 11/07/18 History Insulin Aspart [NovoLOG Flexpen] 10 units SQ AC-TID 11/07/18 11/07/18 History Insulin Glargine,Hum.rec.anlog 35 unit SQ HS 11/07/18 11/07/18 History [Lantus Solostar] Levothyroxine Sodium [Synthroid] 44 mcg PO MOWEFR 11/07/18 11/07/18 History Allergies Allergy/AdvReac Type Severity Reaction Status Date / Time Iodinated Contrast- Oral and Allergy Anaphylaxis Verified 11/07/18 09:05 IV Dye [Iodinated Contrast Media - IV Dye] Penicillins Allergy Unknown Verified 11/07/18 09:05 Physical Exam Vitals: Vital Signs Temp Pulse Resp BP Pulse Ox 11/08/18 10:00 98 25 H 107/70 95 11/08/18 09:30 98 23 101/59 89 L 11/08/18 09:00 99 23 92/63 91 L 11/08/18 08:30 100 21 106/65 94 L 11/08/18 08:00 97.5 F L 98 23 123/87 91 L 11/08/18 07:00 100 15 103/65 93 L 11/08/18 06:30 98 14 110/68 95 11/08/18 06:00 98 25 H 100/66 95 11/08/18 05:30 99 24 115/69 90 L 11/08/18 05:00 95 15 103/74 95 11/08/18 04:30 95 16 105/75 94 L 11/08/18 04:00 97.8 F 99 12 105/75 90 L 11/08/18 03:30 108 H 13 92 L 11/08/18 03:00 102 H 22 113/68 91 L 11/08/18 02:30 102 H 23 112/58 95 11/08/18 02:00 105 H 25 H 119/69 93 L 11/08/18 01:30 86 20 90/63 92 L 11/08/18 01:00 106 H 20 102/72 92 L 11/08/18 00:39 106 H 20 102/72 92 L 11/08/18 00:30 105 H 13 103/81 91 L 11/08/18 00:00 98.4 F 105 H 27 H 96/75 96 11/07/18 23:30 108 H 25 H 111/63 92 L 11/07/18 23:00 105 H 27 H 116/61 93 L 11/07/18 22:30 108 H 20 108/62 94 L 11/07/18 22:00 107 H 12 91/68 94 L 11/07/18 21:30 105 H 20 104/72 94 L 11/07/18 21:00 112 H 15 100/73 93 L 11/07/18 20:30 110 H 14 93/75 94 L 11/07/18 20:01 98.3 F 111 H 28 H 79/58 11/07/18 19:30 109 H 18 86/66 11/07/18 19:00 110 H 24 86/66 96 11/07/18 18:30 112 H 15 98/68 11/07/18 18:00 113 H 39 H 100/55 94 L 11/07/18 17:30 111 H 17 93/66 94 L 11/07/18 17:00 111 H 20 108/57 90 L 11/07/18 16:30 113 H 18 99/61 93 L 11/07/18 16:09 95.8 F L 108 H 18 93/56 96 11/07/18 16:00 97.2 F L 108 H 17 99/61 95 11/07/18 15:30 95.8 F L 108 H 18 93/56 96 11/07/18 14:30 111 H 15 91/66 96 11/07/18 14:00 105 H 11 L 106/64 11/07/18 13:30 107 H 106/59 99 11/07/18 13:00 108 H 23 107/72 11/07/18 12:30 105 H 89/61 99 11/07/18 12:00 98 9 L 75/49 Intake and Output 11/07/18 11/08/18 11/08/18 22:59 06:59 14:59 Intake Total 0026.218 3545.184 575 Output Total 50 85 15 Balance 4930.506 9964.184 560 Intake: IV 1250 1350 575 D5-0.45% NaCl with KCl 750 1350 450 20Meq/l 1,000 ml @ 150 mls/hr IV .Q6H40M [facility] Rx# :[id number] Levofloxacin 500Mg-D5w 100 Pmx 500 mg In Dextrose/ Water 1 100ml.bag @ 100 mls/hr IVPB Q24H [facility] Rx#: [id number] Sodium Chloride 0.9% 1, 125 000 ml @ 125 mls/hr IV . Q8H [facility] Rx#:[id number] Sodium Chloride 0.9% 1, 400 000 ml @ 200 mls/hr IV . Q5H [facility] Rx#:[id number] Intake, IV Titration 136.210 74.184 Amount Heparin Sod,Pork in 0.45% 51.817 NaCl 25,000 unit In 0.45 % NaCl 1 250ml.bag @ 12 UNITS/KG/HR 9.253 mls/hr IV .Q24H [facility] Rx#: [id number] Insulin Regular 100 unit 84.393 74.184 In Sodium Chloride 0.9% 100 ml @ 0.1 UNITS/KG/HR 7.788 mls/hr IV .[id number] [facility] Rx#:[id number] Output: Urine 50 85 15 Other: Voiding Method Indwelling Catheter Indwelling Catheter Indwelling Catheter Weight 74.8 kg 74.8 kg Results - Lab Results Most recent lab results Calcium 8.5 mg/dL (8.4-10.2) 11/08/18 09:45 Phosphorus 3.9 mg/dL (2.5-4.5) 11/08/18 09:45 Magnesium 1.2 mg/dL (1.6-2.3) L 11/08/18 05:40 11/08/18 05:40 11/08/18 09:45 Assessment and Plan Plan: Assessment: 1. Acute kidney injury secondary to ATN secondary to severe intravascular volume depletion from hyperglycemia, hypotension and further worsened with the use of KISHAN inhibitor and diuretics. Creatinine of 2.4 today. Creatinine in February 2017 was 0.76. 2. Metabolic acidosis secondary to acute kidney injury and IV fluids. 3. Mild hyperkalemia secondary to acute kidney injury and metabolic acidosis. 4. Hyperglycemia maintained on insulin drip. 5. Insulin-dependent diabetes mellitus. 6. Benign hypertension. Currently on the lower side. Plan: Discontinue normal saline. Start sodium bicarbonate drip to be run at 125 mL an hour. Avoid nephrotoxins. Repeat BMP this evening. Continue to monitor renal function and urine output closely. If no improvement over the next 24-48 hours, she will need renal replacement therapy. This was discussed with the patient as well as her daughter. Thank you for the consultation. I will continue to follow the patient with you during her hospital stay.
[2018-11-08 12:07] VITALS: BP 99/58; PULSE 73; RESP 27; TEMP 97.3
[2018-11-08 12:11] LABS: Glucose,Whole Blood 279 mg/dL (75-99)
[2018-11-08] MEDS ORDERED: INSULIN ASPART (NovoLOG) 100 UNIT/ML VIAL SQ SCH (12:30)
[2018-11-08 12:47] LABS: Glucose,Whole Blood 308 mg/dL (75-99)
[2018-11-08] MEDS ORDERED: SODIUM CHLORIDE 0.9% 250 ML BAG ONE (13:00)
[2018-11-08] MEDS ORDERED: SODIUM CHLORIDE 0.9% 1,000 ML BAG ONE (13:00)
[2018-11-08] MEDS ORDERED: ATROPINE SULFATE 0.1 MG/ML 10ML SYRINGE ONE (13:00)
[2018-11-08] MEDS ORDERED: NOREPINEPHRINE 1 MG/ML 4 ML VIAL IV ONE (13:00)
[2018-11-08] MEDS ORDERED: METOPROLOL TARTRATE 5 MG/5 ML VIAL IVP ONE (13:00)
[2018-11-08] MEDS ORDERED: CALCIUM CHLORIDE 100 MG/ML 10 ML SYRINGE ONE (13:00)
[2018-11-08] MEDS ORDERED: SODIUM BICARB 8.4% 50 ML SYR (1 MEQ/ML) ONE (13:00)
[2018-11-08] MEDS ORDERED: AMIODARONE 50 MG/ML 3 ML VIAL IV ONE (13:00)
[2018-11-08] MEDS ORDERED: EPINEPHrine 10 ML SYRINGE (0.1 MG/ML) ONE (13:00)
[2018-11-08] MEDS ORDERED: AMIODARONE 150 MG Bolus IV ONE ×2 (14:00)
[2018-11-08 14:03] LABS: ABG Base Excess -24.6 mmol/L; ABG Oxygen Saturation 77.5 % (94-97); ABG PCO2 50 mmHg (35-45); ABG PO2 73 mmHg (83-108); ABG TCO2 10 mmol/L (19-24)
[2018-11-08 14:07] LABS: ABG HCO3 9 mmol/L (21-25); ABG PH <7.00 (7.35-7.45)
--- NOTE | 2018-11-08 14:52 | P.PN ---
Subjective Progress Note Date: 11/08/18 Principal diagnosis: Acute hyperglycemic, hyperosmolar state and metabolic encephalopathy. this is a 73-year-old female with history of multiple medical problems including dementia,diabetes, hypothyroidism, hypertension,degenerative joint disease, previous CVA, patient was brought into the ER withchief complaint not feeling well, patient is a poor historian, and according to family patient had worsening mental status, and feeling generally weak and tired. She did have some vague discomfort in the chest earlier today.her symptoms have been progressing since last night. She had one episode of vomiting. But denies any abdominal pain, no melena, no hematemesis, denies any dysuria frequency or urgency. In the ER, the patient was noted to be hypotensive, ,metabolically acidotic with an anion gap of 17, she was noted to have acute kidney injury with BUN of 34 creatinine of 1.93, and her blood sugar was 581, elevated troponin of 0.630,and she was negative for ketones. Patient received 2 on a half liters of fluids in the form of 0.9 normal saline, remained relatively hypotensive, a central line was placed by the ER physician,and a central line was noted to cross from the right to the left subclavian or brachiocephalic region. However it was functional, and it was kept in place.considering the patient's hypotension, hyperglycemia, patient was transferred to the ICU, kept on 0.9 normal saline at 200 mL/h, insulin is at 7 units per hour, CT of the abdomen and pelvis was negative for any acute process. Chest x-ray was also unremarkable. Her lactic acid was elevated, but clearly the patient was profoundly dehydrated. No clear-cut evidence of infection or sepsis upon presentation. Patient was seen earlier today this morning, and she was noted to be improving. Her blood sugar was better controlled, there was no evidence of any significant anion gap, and she was still on insulin drip at 1 unit per hour. Patient was switched from insulin drip to insulin as per protocol, and I recommended nephrology consultation because her urine output was less than 5-10 mL per hour. Patient was kept on insulin as per protocol, her IV fluid was changed to 0.9 normal saline instead of D5 45, and patient was noted to have significant improvement over the last 24 hours. Her mental status was basically about the same, and her daughter told me that she does have baseline dementia. Patient was not in any form of respiratory distress at the time I did recommend n ephrology consultation, and I did recommend one dose of Lasix to be given since the patient received more than 4 L of fluids over the last 24 hours and her urine output was poor. Around 1:00 PM, patient became suddenly pulseless, hypotensive, and required immediate intubation. At the time I was in the bronchoscopy suite performing a bronchoscopy. The ER physician and Dr. ARUN Amezcua responded to the code. Apparently the patient Going in and out of ventricular tachycardia, she was also pulseless at times, and she received CPR, she received amiodarone 300 mg 2, she received multiple shocks/defibrillation, and kept going in and out of ventricular tachycardia. Shortly after I arrived to the ICU and joint Dr. ARUN Amezcua in running the code. Patient was not showing much improvement in spite of all the treatment she received including multiple shocks, multiple doses of amiodarone, metoprolol, and sodium bicarb. Patient also required norepinephrine for low blood pressure. After multiple shocks, and the patient wasn't improving, I went outside and talk to her 2 daughters updated them on her condition. They were made aware that her condition is extremely poor, and even if she makes it through this, there is a likely chance considering the code was very prolonged that she may sustain significant anoxic brain injury. Her ABG showed a pO2 of 73 pCO2 of 50 and pH of less than 7. Family agreed to DO NOT RESUSCITATE CODE STATUS, and not to be shocked again. Also agreed to continue present management on mechanical ventilation, and we will likely address comfort care measures shortly. Patient is now on norepinephrine, she is mechanically ventilated, a right groin arterial line was placed, and her blood pressure is extremely marginal. Family was asked to come back to the room and see the patient, and we will likely again consider terminal weaning and comfort care measures. Patient was on heparin from the time she was admitted, the heparin was started by the ER physician because of positive troponin. Her echocardiogram according to the moss picker showed right ventricle severely enlarged, and her right-sided pressures with 62.5. The moss picker felt that this could be related to pulmonary embolism. However the patient was on anticoagulation therapy all along from the time she was admitted. Her d-dimer was positive, but the patient had acute kidney injury, and no CT angiogram of the chest could be done. Objective - Vital Signs Vital signs: Vital Signs Temp 97.3 F L 11/08/18 12:00 Pulse 73 11/08/18 12:00 Resp 27 H 11/08/18 12:00 BP 99/58 11/08/18 12:00 Pulse Ox 93 L 11/08/18 12:00 Intake & Output 11/07/18 11/08/18 11/08/18 18:59 06:59 18:59 Intake Total 635.343 3045.008 705.267 Output Total 20 115 15 Balance 444.743 6158.008 690.267 Weight 77.111 kg 74.8 kg 74.8 kg Intake: IV 650 1950 700 D5-0.45% NaCl with KCl 150 1950 450 20Meq/l 1,000 ml @ 150 mls/hr IV .Q6H40M [facility] Rx# :[id number] Levofloxacin 500Mg-D5w 100 Pmx 500 mg In Dextrose/ Water 1 100ml.bag @ 100 mls/hr IVPB Q24H [facility] Rx#: [id number] Sodium Chloride 0.9% 1, 250 000 ml @ 125 mls/hr IV . Q8H [facility] Rx#:[id number] Sodium Chloride 0.9% 1, 400 000 ml @ 200 mls/hr IV . Q5H [facility] Rx#:[id number] Intake, IV Titration 54.386 156.008 5.267 Amount Heparin Sod,Pork in 0.45% 51.817 NaCl 25,000 unit In 0.45 % NaCl 1 250ml.bag @ 12 UNITS/KG/HR 9.253 mls/hr IV .Q24H [facility] Rx#: [id number] Insulin Regular 100 unit 54.386 104.191 5.267 In Sodium Chloride 0.9% 100 ml @ 0.1 UNITS/KG/HR 7.788 mls/hr IV .[id number] [facility] Rx#:[id number] Output: Urine 20 115 15 Other: Voiding Method Indwelling Catheter Indwelling Catheter Indwelling Catheter - Exam Physical Exam: Revealed a 73-year-old female intubated, CPR in progress, the code is being supervised by Dr. ARUN Amezcua. Patient was being Ambu bag. Head: Atraumatic normocephalic. Pale and dry mucous membranes. HEENT:[Neck is supple.] [No neck masses.] [No thyromegaly.] [No JVD.] Endotrach eal tube seems to be intact. Chest: [Diminished breath sounds at the bases no crackles or rhonchi or wheezes.] Cardiac Exam: [Normal S1 and S2, no S3 gallop, patient was noted to be in and out of ventricular tachycardia based on the rhythm during CPR. Abdomen: [Soft, nontender, no megaly, no rebound, no guarding, normal bowel sounds.] Extremities: [No clubbing, no edema, no cyanosis.] Poor distal pulses bilaterally Neurological Exam: Could not be assessed, patient was intubated and CPR in prog ress. Lymphatics: No lymphadenopathy. - Labs CBC & Chem 7: 11/08/18 05:40 11/08/18 09:45 Labs: Abnormal Lab Results - Last 24 Hours (Table) 11/07/18 11/07/18 11/07/18 Range/Units 08:30 14:32 14:32 WBC (3.8-10.6) k/uL MCHC (31.0-37.0) g/dL Plt Count (150-450) k/uL Neutrophils # (Manual) (1.3-7.7) k/uL Monocytes # (Manual) (0-1.0) k/uL PT (9.0-12.0) sec INR (<1.2) APTT (22.0-30.0) sec D-Dimer (<0.60) mg/L FEU ABG pH (7.35-7.45) ABG pCO2 (35-45) mmHg ABG pO2 (83-108) mmHg ABG HCO3 (21-25) mmol/L ABG Total CO2 (19-24) mmol/L ABG O2 Saturation (94-97) % Potassium (3.5-5.1) mmol/L Chloride (98-107) mmol/L Carbon Dioxide (22-30) mmol/L BUN (7-17) mg/dL Creatinine (0.52-1.04) mg/dL Glucose (74-99) mg/dL POC Glucose (mg/dL) (75-99) mg/dL Hemoglobin A1c 8.9 H (4.0-6.0) % Plasma Lactic Acid Jd 4.6 H* (0.7-2.0) mmol/L Magnesium (1.6-2.3) mg/dL Troponin I 0.630 H* (0.000-0.034) ng/mL HDL Cholesterol (40-60) mg/dL 11/07/18 11/07/18 11/07/18 Range/Units 15:08 15:33 16:17 WBC (3.8-10.6) k/uL MCHC (31.0-37.0) g/dL Plt Count (150-450) k/uL Neutrophils # (Manual) (1.3-7.7) k/uL Monocytes # (Manual) (0-1.0) k/uL PT (9.0-12.0) sec INR (<1.2) APTT (22.0-30.0) sec D-Dimer (<0.60) mg/L FEU ABG pH (7.35-7.45) ABG pCO2 (35-45) mmHg ABG pO2 (83-108) mmHg ABG HCO3 (21-25) mmol/L ABG Total CO2 (19-24) mmol/L ABG O2 Saturation (94-97) % Potassium (3.5-5.1) mmol/L Chloride 110 H (98-107) mmol/L Carbon Dioxide 19 L (22-30) mmol/L BUN 36 H (7-17) mg/dL Creatinine 1.92 H (0.52-1.04) mg/dL Glucose 350 H (74-99) mg/dL POC Glucose (mg/dL) 439 H 370 H (75-99) mg/dL Hemoglobin A1c (4.0-6.0) % Plasma Lactic Acid Jd (0.7-2.0) mmol/L Magnesium (1.6-2.3) mg/dL Troponin I (0.000-0.034) ng/mL HDL Cholesterol (40-60) mg/dL 11/07/18 11/07/18 11/07/18 Range/Units 16:59 18:17 19:18 WBC (3.8-10.6) k/uL MCHC (31.0-37.0) g/dL Plt Count (150-450) k/uL Neutrophils # (Manual) (1.3-7.7) k/uL Monocytes # (Manual) (0-1.0) k/uL PT (9.0-12.0) sec INR (<1.2) APTT (22.0-30.0) sec D-Dimer (<0.60) mg/L FEU ABG pH (7.35-7.45) ABG pCO2 (35-45) mmHg ABG pO2 (83-108) mmHg ABG HCO3 (21-25) mmol/L ABG Total CO2 (19-24) mmol/L ABG O2 Saturation (94-97) % Potassium (3.5-5.1) mmol/L Chloride (98-107) mmol/L Carbon Dioxide (22-30) mmol/L BUN (7-17) mg/dL Creatinine (0.52-1.04) mg/dL Glucose (74-99) mg/dL POC Glucose (mg/dL) 257 H 267 H 277 H (75-99) mg/dL Hemoglobin A1c (4.0-6.0) % Plasma Lactic Acid Jd (0.7-2.0) mmol/L Magnesium (1.6-2.3) mg/dL Troponin I (0.000-0.034) ng/mL HDL Cholesterol (40-60) mg/dL 11/07/18 11/07/18 11/07/18 Range/Units 20:04 21:07 21:10 WBC (3.8-10.6) k/uL MCHC (31.0-37.0) g/dL Plt Count (150-450) k/uL Neutrophils # (Manual) (1.3-7.7) k/uL Monocytes # (Manual) (0-1.0) k/uL PT (9.0-12.0) sec INR (<1.2) APTT (22.0-30.0) sec D-Dimer (<0.60) mg/L FEU ABG pH (7.35-7.45) ABG pCO2 (35-45) mmHg ABG pO2 (83-108) mmHg ABG HCO3 (21-25) mmol/L ABG Total CO2 (19-24) mmol/L ABG O2 Saturation (94-97) % Potassium (3.5-5.1) mmol/L Chloride (98-107) mmol/L Carbon Dioxide (22-30) mmol/L BUN (7-17) mg/dL Creatinine (0.52-1.04) mg/dL Glucose (74-99) mg/dL POC Glucose (mg/dL) 228 H 229 H (75-99) mg/dL Hemoglobin A1c (4.0-6.0) % Plasma Lactic Acid Jd (0.7-2.0) mmol/L Magnesium (1.6-2.3) mg/dL Troponin I 0.791 H* (0.000-0.034) ng/mL HDL Cholesterol (40-60) mg/dL 11/07/18 11/07/18 11/07/18 Range/Units 21:10 21:58 23:02 WBC (3.8-10.6) k/uL MCHC (31.0-37.0) g/dL Plt Count (150-450) k/uL Neutrophils # (Manual) (1.3-7.7) k/uL Monocytes # (Manual) (0-1.0) k/uL PT (9.0-12.0) sec INR (<1.2) APTT 37.6 H (22.0-30.0) sec D-Dimer (<0.60) mg/L FEU ABG pH (7.35-7.45) ABG pCO2 (35-45) mmHg ABG pO2 (83-108) mmHg ABG HCO3 (21-25) mmol/L ABG Total CO2 (19-24) mmol/L ABG O2 Saturation (94-97) % Potassium (3.5-5.1) mmol/L Chloride (98-107) mmol/L Carbon Dioxide (22-30) mmol/L BUN (7-17) mg/dL Creatinine (0.52-1.04) mg/dL Glucose (74-99) mg/dL POC Glucose (mg/dL) 201 H 212 H (75-99) mg/dL Hemoglobin A1c (4.0-6.0) % Plasma Lactic Acid Jd (0.7-2.0) mmol/L Magnesium (1.6-2.3) mg/dL Troponin I (0.000-0.034) ng/mL HDL Cholesterol (40-60) mg/dL 11/07/18 11/08/18 11/08/18 Range/Units 23:56 00:59 02:08 WBC (3.8-10.6) k/uL MCHC (31.0-37.0) g/dL Plt Count (150-450) k/uL Neutrophils # (Manual) (1.3-7.7) k/uL Monocytes # (Manual) (0-1.0) k/uL PT (9.0-12.0) sec INR (<1.2) APTT (22.0-30.0) sec D-Dimer (<0.60) mg/L FEU ABG pH (7.35-7.45) ABG pCO2 (35-45) mmHg ABG pO2 (83-108) mmHg ABG HCO3 (21-25) mmol/L ABG Total CO2 (19-24) mmol/L ABG O2 Saturation (94-97) % Potassium (3.5-5.1) mmol/L Chloride (98-107) mmol/L Carbon Dioxide (22-30) mmol/L BUN (7-17) mg/dL Creatinine (0.52-1.04) mg/dL Glucose (74-99) mg/dL POC Glucose (mg/dL) 196 H 155 H 163 H (75-99) mg/dL Hemoglobin A1c (4.0-6.0) % Plasma Lactic Acid Jd (0.7-2.0) mmol/L Magnesium (1.6-2.3) mg/dL Troponin I (0.000-0.034) ng/mL HDL Cholesterol (40-60) mg/dL 11/08/18 11/08/18 11/08/18 Range/Units 03:01 04:02 05:04 WBC (3.8-10.6) k/uL MCHC (31.0-37.0) g/dL Plt Count (150-450) k/uL Neutrophils # (Manual) (1.3-7.7) k/uL Monocytes # (Manual) (0-1.0) k/uL PT (9.0-12.0) sec INR (<1.2) APTT (22.0-30.0) sec D-Dimer (<0.60) mg/L FEU ABG pH (7.35-7.45) ABG pCO2 (35-45) mmHg ABG pO2 (83-108) mmHg ABG HCO3 (21-25) mmol/L ABG Total CO2 (19-24) mmol/L ABG O2 Saturation (94-97) % Potassium (3.5-5.1) mmol/L Chloride (98-107) mmol/L Carbon Dioxide (22-30) mmol/L BUN (7-17) mg/dL Creatinine (0.52-1.04) mg/dL Glucose (74-99) mg/dL POC Glucose (mg/dL) 140 H 150 H 127 H (75-99) mg/dL Hemoglobin A1c (4.0-6.0) % Plasma Lactic Acid Jd (0.7-2.0) mmol/L Magnesium (1.6-2.3) mg/dL Troponin I (0.000-0.034) ng/mL HDL Cholesterol (40-60) mg/dL 11/08/18 11/08/18 11/08/18 Range/Units 05:40 05:40 05:40 WBC 22.1 H (3.8-10.6) k/uL MCHC 29.5 L (31.0-37.0) g/dL Plt Count 120 L (150-450) k/uL Neutrophils # (Manual) 17.00 H (1.3-7.7) k/uL Monocytes # (Manual) 1.33 H (0-1.0) k/uL PT 14.4 H (9.0-12.0) sec INR 1.4 H (<1.2) APTT (22.0-30.0) sec D-Dimer (<0.60) mg/L FEU ABG pH (7.35-7.45) ABG pCO2 (35-45) mmHg ABG pO2 (83-108) mmHg ABG HCO3 (21-25) mmol/L ABG Total CO2 (19-24) mmol/L ABG O2 Saturation (94-97) % Potassium (3.5-5.1) mmol/L Chloride 113 H (98-107) mmol/L Carbon Dioxide 19 L (22-30) mmol/L BUN 38 H (7-17) mg/dL Creatinine 2.32 H (0.52-1.04) mg/dL Glucose 142 H (74-99) mg/dL POC Glucose (mg/dL) (75-99) mg/dL Hemoglobin A1c (4.0-6.0) % Plasma Lactic Acid Jd (0.7-2.0) mmol/L Magnesium 1.2 L (1.6-2.3) mg/dL Troponin I (0.000-0.034) ng/mL HDL Cholesterol 38 L (40-60) mg/dL 11/08/18 11/08/18 11/08/18 Range/Units 05:40 05:40 06:30 WBC (3.8-10.6) k/uL MCHC (31.0-37.0) g/dL Plt Count (150-450) k/uL Neutrophils # (Manual) (1.3-7.7) k/uL Monocytes # (Manual) (0-1.0) k/uL PT (9.0-12.0) sec INR (<1.2) APTT 57.4 H (22.0-30.0) sec D-Dimer 24.40 H (<0.60) mg/L FEU ABG pH (7.35-7.45) ABG pCO2 (35-45) mmHg ABG pO2 (83-108) mmHg ABG HCO3 (21-25) mmol/L ABG Total CO2 (19-24) mmol/L ABG O2 Saturation (94-97) % Potassium (3.5-5.1) mmol/L Chloride (98-107) mmol/L Carbon Dioxide (22-30) mmol/L BUN (7-17) mg/dL Creatinine (0.52-1.04) mg/dL Glucose (74-99) mg/dL POC Glucose (mg/dL) 135 H (75-99) mg/dL Hemoglobin A1c (4.0-6.0) % Plasma Lactic Acid Jd (0.7-2.0) mmol/L Magnesium (1.6-2.3) mg/dL Troponin I (0.000-0.034) ng/mL HDL Cholesterol (40-60) mg/dL 11/08/18 11/08/18 11/08/18 Range/Units 08:05 09:28 09:45 WBC (3.8-10.6) k/uL MCHC (31.0-37.0) g/dL Plt Count (150-450) k/uL Neutrophils # (Manual) (1.3-7.7) k/uL Monocytes # (Manual) (0-1.0) k/uL PT (9.0-12.0) sec INR (<1.2) APTT (22.0-30.0) sec D-Dimer (<0.60) mg/L FEU ABG pH (7.35-7.45) ABG pCO2 (35-45) mmHg ABG pO2 (83-108) mmHg ABG HCO3 (21-25) mmol/L ABG Total CO2 (19-24) mmol/L ABG O2 Saturation (94-97) % Potassium 5.3 H (3.5-5.1) mmol/L Chloride 113 H (98-107) mmol/L Carbon Dioxide 16 L (22-30) mmol/L BUN 39 H (7-17) mg/dL Creatinine 2.42 H (0.52-1.04) mg/dL Glucose 224 H (74-99) mg/dL POC Glucose (mg/dL) 151 H 189 H (75-99) mg/dL Hemoglobin A1c (4.0-6.0) % Plasma Lactic Acid Dj (0.7-2.0) mmol/L Magnesium (1.6-2.3) mg/dL Troponin I (0.000-0.034) ng/mL HDL Cholesterol (40-60) mg/dL 11/08/18 11/08/18 11/08/18 Range/Units 11:18 12:00 12:46 WBC (3.8-10.6) k/uL MCHC (31.0-37.0) g/dL Plt Count (150-450) k/uL Neutrophils # (Manual) (1.3-7.7) k/uL Monocytes # (Manual) (0-1.0) k/uL PT (9.0-12.0) sec INR (<1.2) APTT (22.0-30.0) sec D-Dimer (<0.60) mg/L FEU ABG pH (7.35-7.45) ABG pCO2 (35-45) mmHg ABG pO2 (83-108) mmHg ABG HCO3 (21-25) mmol/L ABG Total CO2 (19-24) mmol/L ABG O2 Saturation (94-97) % Potassium (3.5-5.1) mmol/L Chloride (98-107) mmol/L Carbon Dioxide (22-30) mmol/L BUN (7-17) mg/dL Creatinine (0.52-1.04) mg/dL Glucose (74-99) mg/dL POC Glucose (mg/dL) 225 H 279 H 308 H (75-99) mg/dL Hemoglobin A1c (4.0-6.0) % Plasma Lactic Acid Jd (0.7-2.0) mmol/L Magnesium (1.6-2.3) mg/dL Troponin I (0.000-0.034) ng/mL HDL Cholesterol (40-60) mg/dL 11/08/18 Range/Units 14:00 WBC (3.8-10.6) k/uL MCHC (31.0-37.0) g/dL Plt Count (150-450) k/uL Neutrophils # (Manual) (1.3-7.7) k/uL Monocytes # (Manual) (0-1.0) k/uL PT (9.0-12.0) sec INR (<1.2) APTT (22.0-30.0) sec D-Dimer (<0.60) mg/L FEU ABG pH <7.00 L* (7.35-7.45) ABG pCO2 50 H (35-45) mmHg ABG pO2 73 L (83-108) mmHg ABG HCO3 9 L* (21-25) mmol/L ABG Total CO2 10 L (19-24) mmol/L ABG O2 Saturation 77.5 L (94-97) % Potassium (3.5-5.1) mmol/L Chloride (98-107) mmol/L Carbon Dioxide (22-30) mmol/L BUN (7-17) mg/dL Creatinine (0.52-1.04) mg/dL Glucose (74-99) mg/dL POC Glucose (mg/dL) (75-99) mg/dL Hemoglobin A1c (4.0-6.0) % Plasma Lactic Acid Jd (0.7-2.0) mmol/L Magnesium (1.6-2.3) mg/dL Troponin I (0.000-0.034) ng/mL HDL Cholesterol (40-60) mg/dL Assessment and Plan Assessment: impression: 1 cardiac arrest, exact etiology is not clear, could be related to acute myocardial infarction could also be related to thromboembolic disease, pulmonary embolism. 2 acute hyperglycemic, hyperosmolar state with dehydration and metabolic encephalopathy. Improved over the last 24 hours 3 profound dehydration secondary to hyperglycemia, and strongly suspect pre-renal azotemia, possible acute kidney injury secondary to hypotension. 4 acute hypovolemia with hypotension. 5 elevated troponin, possible non-ST elevation myocardial infarction, elevated d-dimer, possible thromboembolic disease. 6 multiple comorbidities including dementia, hypertension, degenerative joint disease,hypothyroidism, hypercholesterolemia and depression. Recommendation: Considering her cardiac arrest, considering the prolonged code process, considering that the patient may have sustained significant anoxic brain injury, her condition was discussed with HER-2 daughters and updated on her condition. CODE STATUS was changed to DO NOT RESUSCITATE, patient is not to be shocked/defibrillated again, not to do more CPR and we will likely proceed to comfort care measures shortly. Prognosis is clearly extremely poor. Critical care time is 45 minutes not including the time for placement of right femoral arterial line Time with Patient: Greater than 30
--- NOTE | 2018-11-08 16:53 | CONS ---
CONSULTATION This lady was seen by me in the emergency room yesterday evening and at that time she presented mainly with complaints of not feeling well. She was not a good historian. The family was there to help. Basically they suggested that she was not feeling well. She had an emesis, a large bowel movement, then she felt weak and tired and blood sugar by EMS was over 500 when the EMS arrived at her home. After she arrived here, she complained of some chest discomfort. But when I talked to her, she did not have any discomfort in the chest. Her troponin level was high, but she also has CKD and this initial troponin did not seem significant. I recommended that we do a CT scan to rule out any aortic pathology before initiating heparin. She has underlying comorbid conditions in the form of parkinsonism, hypertension, hypothyroidism, dementia, and hyperlipidemia. There is no clear-cut evidence of any prior myocardial infarction or CVA. She also has diabetes mellitus which is uncontrolled and she has blood sugar for 500. Patient is not a smoker. PAST MEDICAL HISTORY: Is also significant for, in addition to diabetes, uncontrolled, history of prior CVA/TIA, osteoarthritis, hypertension, hypothyroidism and Parkinson disease and dementia. MEDICATIONS: At home include in insulin, Lantus and NovoLog, Synthroid, amlodipine, metformin, lisinopril, hydrochlorothiazide, Mevacor, and Sinemet 25/100. PHYSICAL EXAMINATION: On examination, her blood pressure was about 108/60, pulse rate was about 70 per minute. EKG revealed a sinus mechanism with sinus tachycardia, nonspecific ST changes. There was JVD of about 1 cm. No carotid bruit. Heart exam reveals S1, S2 with a short systolic murmur at the base. Lungs reveal diminished air entry. Abdomen was soft. Lower extremities reveal diminished pulses. Central nervous system grossly no focal deficits but there was some generalized weakness. LABORATORY DATA: Suggested initial troponin of 0.5 and 0.0 and subsequent one of 0.6. The patient's creatinine was elevated and was about 1.92. Liver functions were normal. There was also a white count elevation and hemoglobin was 13.9. IMPRESSION: 1. Troponin elevation does not suggest myocardial injury. 2. History of uncontrolled diabetes with hyperglycemia, blood sugar of more than 500. 3. History of dementia. 4. History of hypertension. 5. History of diabetes with chronic kidney disease. 6. RECOMMENDATION: I am recommending that we heparinize the patient after making sure the CT scan of the chest is unremarkable for any aortic pathology. I would not recommend any contrast at this time given the fact her creatinine is high. We will heparinize her and her white count is also elevated. She will probably also have a septic workup. She was then admitted to the ICU. I re-evaluated this patient this morning. At the time of my evaluation this morning she was more comfortable. Denied any chest discomfort. Her blood pressure was about 100/60, pulse rate was about 88, sinus. HEENT was unremarkable. Fundus was not examined. Neck is supple. There is JVD of 1-2 cm. No carotid bruit. S1, S2 with a short systolic murmur is audible. Lungs reveal diminished air entry. Abdomen is soft. Lower extremities reveal diminished pulses. I am awaiting the results of the echocardiogram. We will go ahead and obtain a D-dimer. We will continue heparin and consider V/Q scan if the D-dimer is abnormal. If D-Dimer is abnormal continue IV heparin otherwise switch to SQ. I discussed my thoughts with the patient. There is no family available today. Prognosis remains guarded. MMODL / IJN: [id number] / RYAN
--- NOTE | 2018-11-08 17:38 | OP ---
OPERATIVE REPORT OPERATIVE PROCEDURE: Placement of a right femoral arterial line. PREOPERATIVE DIAGNOSIS: Cardiac arrest. POSTOPERATIVE DIAGNOSIS: Cardiac arrest. ANESTHESIA USED: None deployed. PROCEDURE DESCRIPTION: The area of the right groin was prepared in a sterile fashion and drapes were applied. The right femoral artery was palpated, cannulated, and a guidewire was placed. A femoral arterial catheter was placed over the guidewire, and the guidewire was removed. Good blood flow and good waveform were noted. No evidence of any immediate complications. Line was secured using 3.0 silk sutures. MMODL / IJN: [id number] /
[2018-11-08] MEDS ORDERED: INSULIN DETEMIR (LEVEMIR) 100 UNIT/ML SYR SQ SCH (21:00)
--- NOTE | 2018-11-09 08:34 | DS ---
DISCHARGE SUMMARY DATE OF ADMISSION: 11/07/2018. DATE PATIENT : 11/08/2018. PROBABLE CAUSE OF : Diabetes mellitus type 2. Other medical conditions include: 1. Nonketotic hyperosmolar hyperglycemia. 2. Acute metabolic encephalopathy, multifactorial. 3. Severe cognitive impairment from underlying dementia. 4. Hyperlipidemia. 5. Essential hypertension, primary osteoarthritis. 6. Hypothyroid. 7. Chronic Parkinson's disease, idiopathic. 8. Hyperkalemia secondary to renal failure. 9. Acute renal failure, probably prerenal. 10.Troponin leak due to hemodynamic mismatch, doubt acute coronary syndrome. CONSULTATIONS: 1. Dr. Meraz from Pulmonary. 2. Dr. Lawson from Nephrology. 3. Dr. Shawn Amezcua from Cardiology. HOSPITAL COURSE: This patient presented weak, tired, run down, Did have acute renal failure, also had uncontrolled sugars. Earlier today, a code was called on the patient. The patient went into asystole. Apparently also had AFib and resuscitation was unsuccessful. Patient was in the ICU. MMODL / IJN: [id number] /
--- NOTE | 2018-11-10 13:02 | CDI ---
Documentation Clarification Form Date: 11/10/2018 12:28:33 PM From: Brigitte Adames RN, CCDS Email: [email or web address] Admit Date: 11/07/2018 1:42:00 PM Patient Name: Rebecca Mosquera Visit Number: [id number] Discharge Date: 11/08/2018 4:39:00 PM ATTENTION: The Clinical Documentation Specialists (CDI) and [facility] Coding Staff appreciate your assistance in clarifying documentation. Please respond to the clarification below the line at the bottom and electronically sign. The CDI & [facility] Coding staff will review the response and follow-up if needed. Please note: Queries are made part of the Legal Health Record. If you have any questions, please contact the author of this message via ITS. Dr. Christian Lawson Patient was admitted with acute non-ketotic hyperosmolar hyperglycemia. alliance consultant documents history of diabetes with chronic kidney disease and recommends no contrast due to high creatinine. Nephrology consult documentation states acute kidney injury secondary to ATN. History/Risk Factors: DM type 2 chronically on insulin, HTN, Dementia Clinical Indicators: hyperglycemia, altered mental status, profoundly dehydrated, tachycardic, urine output of 5-10 ml/hr Current BUN/CR/GFR was: 39/2.03 March 2017 CR: 0.76 Treatment: IVF bolus then maintained @125/hr, Insulin drip, Sodium bicarb drip, avoid nephrotoxins, monitor labs In order to capture the severity of condition, please clarify if you agree with Cardiology's diagnosis of chronic kidney disease and if the condition signifies: CKD Stage 1 (GFR > 90) CKD Stage 2 (GFR 60-89) CKD Stage 3 (GFR 30-59) CKD Stage 4 (GFR 15-29) CKD Stage 5 (GFR <15) Other, please specify Unable to determine MTDD
== END 2018-11-08 16:39 | disposition expired | DRG 637 ==
LOC: EC 07:51 → 2SICU 13:42
PROVIDERS: ADMIT Hospitalist; ATTEND Hospitalist
PROC: 05H633Z Insertion of Infusion Device into Left Subclavian Vein, Percutaneous Approach (ICD-10-PCS; 2018-11-07)
PROC: 5A12012 Performance of Cardiac Output, Single, Manual (ICD-10-PCS; principal; 2018-11-08)
PROC: 0BH17EZ Insertion of Endotracheal Airway into Trachea, Via Natural or Artificial Opening (ICD-10-PCS; 2018-11-08)
PROC: 5A1935Z Respiratory Ventilation, Less than 24 Consecutive Hours (ICD-10-PCS; 2018-11-08)
PROC: 04HY32Z Insertion of Monitoring Device into Lower Artery, Percutaneous Approach (ICD-10-PCS; 2018-11-08)
PROC: 4A133B1 Monitoring of Arterial Pressure, Peripheral, Percutaneous Approach (ICD-10-PCS; 2018-11-08)
PROC: 4A133J1 Monitoring of Arterial Pulse, Peripheral, Percutaneous Approach (ICD-10-PCS; 2018-11-08)
DX: E11.00 Type 2 diabetes mellitus with hyperosmolarity without nonketotic hyperglycemic-hyperosmolar coma (NKHHC) (principal); G93.41 Metabolic encephalopathy; N17.0 Acute kidney failure with tubular necrosis; I21.9 Acute myocardial infarction, unspecified; E87.2 Acidosis; I47.2 Ventricular tachycardia; G93.1 Anoxic brain damage, not elsewhere classified; I46.9 Cardiac arrest, cause unspecified; Z66 Do not resuscitate; Z51.5 Encounter for palliative care; I95.9 Hypotension, unspecified; E87.5 Hyperkalemia; E11.22 Type 2 diabetes mellitus with diabetic chronic kidney disease; E86.1 Hypovolemia; G20 Parkinson's disease; E86.0 Dehydration; F02.80 Dementia in other diseases classified elsewhere, unspecified severity, without behavioral disturbance, psychotic disturbance, mood disturbance, and anxiety; I11.9 Hypertensive heart disease without heart failure; E78.00 Pure hypercholesterolemia, unspecified; F32.9 Major depressive disorder, single episode, unspecified; E78.5 Hyperlipidemia, unspecified; E03.9 Hypothyroidism, unspecified; M19.041 Primary osteoarthritis, right hand; M19.042 Primary osteoarthritis, left hand; Z79.4 Long term (current) use of insulin; Z79.890 Hormone replacement therapy; Z79.899 Other long term (current) drug therapy; Z86.73 Personal history of transient ischemic attack (TIA), and cerebral infarction without residual deficits; Z90.49 Acquired absence of other specified parts of digestive tract; Z96.652 Presence of left artificial knee joint; Z96.611 Presence of right artificial shoulder joint; Z98.51 Tubal ligation status; Z88.0 Allergy status to penicillin; Z91.041 Radiographic dye allergy status; Z82.3 Family history of stroke; Z82.49 Family history of ischemic heart disease and other diseases of the circulatory system
CPT/HCPCS: 36415; 36556; 36600; 51702; 71045; 71046; 71250; 74018; 74176; 80048; 80051; 80053; 80061; 81001; 82009; 82140; 82550; 82565; 82805; 82947; 83036; 83605; 83735; 84100; 84484; 84520; 85025; 85379; 85610; 85730; 93005; 93306; 94002; 96360; 99291